=== PATIENT | female | born 1970 | race African-American/Black ===

== ENCOUNTER → 2016-09-08 | Outpatient (CLI) | payer OTHER ==
[~2016-09-08] MED LIST: ADULT LOW DOSE81 MG PO; APAP650 PO; ATORVASTATIN CA40 MG PO; B-125000 MC1 PO; BARIATRIC MULTI VIT; BC POWDER; BENADRYL25 MG PO; BENTYL 10 MG CA10 M1 PO; COLACE100 MG PO; COZAAR 50 MG TA50 M2 PO; DILTIAZEM ER240 M1 PO; EFFIENT10 MG PO; HYDROCHLOROTH12.5 MG PO; HYDROCODONE-AP1 EAC6 PO; IMDUR 30 MG TAB30 M1 PO; KLOR-CON 1010 MEQ PO; LO-DOSE ASPIRIN81 M1 PO; LOPRESSOR25 PO; LOSARTAN-HCTZ1 EACH PO; NITROSTAT0.4 M1 SUBQ; NORCO 5-325 TA1 EACH PO; ONDANSETRON HCL4 M2 PO; PREDNISONE50 MG PO; PRILOSEC 20 MG20 MG PO; REGLAN 10 MG TA10 MG PO; SENOKOT-S1 TA1 PO; SYMBICORT160 MCG/4. INH; SYMBICORT80 MCG/4.1 INH; TOPAMAX 25 MG T25 M1 PO; TOPAMAX50 MG PO; TYLENOL325 MG PO; VENTOLIN HFA 1818 GM INH; VITAMIN D 5050000 I1 PO; ZANTAC 150MG T150 MG PO; ZYRTEC10 M2 PO; ZYRTEC10 MG PO; [UNRECOGNIZED DRUG - OTHER] PO
== END ==
LOC: SLEEPLAB 09-01 08:05
DX: G47.33 Obstructive sleep apnea (adult) (pediatric) (principal)

== ENCOUNTER 2016-09-28 05:50 | Emergency (ER) | payer OTHER ==
[~2016-09-28] VITALS: Ht 154.9 cm; Wt 69.8 kg
[2016-09-28] MEDS ORDERED: ALTACE10 MG PO (06:08)
[2016-09-28] MEDS ORDERED: PAMELOR25 MG PO (06:08)
[2016-09-28] MEDS ORDERED: HYDROCHLOROTHIA25 M2 PO (06:08)
[2016-09-28 06:50] LABS: URINE BLOOD NEGATIVE (Negative); URINE COLOR YELLOW; URINE GLUCOSE-RANDOM* NEGATIVE (Negative); URINE KETONES TRACE (Negative); URINE NITRITE NEGATIVE (Negative); URINE PROTEIN (DIPSTICK) TRACE (Negative); URINE SPECIFIC GRAVITY >= 1.030 (1.003-1.035)
[2016-09-28 06:53] LABS: ICTOTEST (BILI CONFIRMATORY) Negative (Negative); URINE BILIRUBIN NEGATIVE (Negative)
[2016-09-28 06:54] LABS: ABSOLUTE NEUTROPHILS 2.1 thou/uL (1.4-8.2); BASOPHILS 0.9 % (0.0-2.0); EOSINOPHILS 2.6 % (0.0-3.0); HEMATOCRIT 38.5 % (37.0-47.0); HEMOGLOBIN 12.6 gm/dL (12.0-15.0); LYMPHOCYTES 43.9 % (24.0-44.0); MCH 29.6 pg (26.0-34.0); MCHC 32.8 g/dL (28.0-37.0); MCV 90.2 fL (80.0-100.0); MONOCYTES 10.3 % (1.0-8.0); PLATELET COUNT 248 thou/uL (150-400); POLYS 42.3 % (36.0-66.0); RBC 4.27 mil/uL (4.20-5.00); RDW 13.4 % (10.5-14.5)
[2016-09-28 06:57] LABS: MANUAL DIFF NO
[2016-09-28 07:12] LABS: CALCIUM 8.7 mg/dL (8.5-10.1); POTASSIUM 4.1 mmol/L (3.5-5.1)
[2016-09-28 07:17] LABS: ALBUMIN 3.9 g/dL (3.4-5.0); TOTAL BILIRUBIN 0.2 mg/dL (<0.1-1.0); TOTAL PROTEIN 7.7 g/dL (6.4-8.2)
[2016-09-28] MEDS ORDERED: NORCO 5-325 TA1 EACH PO (10:46)
[2016-09-28] MEDS ORDERED: COLACE100 MG PO (10:46)
[2016-09-28] MEDS ORDERED: PROTONIX40 MG PO (10:48)
== END 2016-09-28 10:57 | disposition home or self-care (01) ==
LOC: ER 05:50
PROVIDERS: Emergency Medicine
DX: K59.00 Constipation, unspecified (principal); I10 Essential (primary) hypertension; J45.909 Unspecified asthma, uncomplicated; E78.00 Pure hypercholesterolemia, unspecified; I25.10 Atherosclerotic heart disease of native coronary artery without angina pectoris; E66.9 Obesity, unspecified; Z68.29 Body mass index [BMI] 29.0-29.9, adult; Z98.84 Bariatric surgery status; Z90.89 Acquired absence of other organs; Z98.61 Coronary angioplasty status; Z88.1 Allergy status to other antibiotic agents; Z88.0 Allergy status to penicillin